=== PATIENT | male | born 1970 | race Two or more races ===

== ENCOUNTER 2017-02-19 07:00 | Emergency (ER) | payer BC, MEDICAID, OTHER, SELFPAY ==
[~2017-02-19] VITALS: Ht 165.1 cm; Wt 89.0 kg
[2017-02-19] MEDS ORDERED: PAIN MED PO (07:27)
[2017-02-19 07:46] LABS: HEMATOCRIT 49.8 % (39.2-51.8); WHITE BLOOD COUNT 8.2 x10^3/uL (3.4-10)
[2017-02-19 07:56] LABS: BLOOD UREA NITROGEN 12 mg/dL (7-18)
[2017-02-19 08:01] LABS: ASPARTATE AMINO TRANSFERASE 45 U/L (15-37)
[2017-02-19 08:31] VITALS: BP 114/78
== END 2017-02-19 08:48 | disposition home or self-care (01) ==
LOC: ED 08:40
DX: M79.662 Pain in left lower leg (principal); M79.661 Pain in right lower leg; I87.2 Venous insufficiency (chronic) (peripheral); R60.0 Localized edema
CPT/HCPCS: 36415; 80053; 85025; 85610; 93970; 99285